=== PATIENT | male | born 1955 | race Caucasian/White ===

== ENCOUNTER 2018-05-25 10:45 | Emergency (ER) | payer OTHER ==
--- NOTE | 2018-05-25 10:55 | EDPHY ---
HPI/HX/ROS/PE/MDM Narrative: CHIEF COMPLAINT: Chest pain, shortness of breath HPI: This patient is a generally healthy 62 year old male. He complains of chest pain and shortness of breath which has gotten progressively worse over the past week. He states "I've had indications for a couple months" and endorses intermittent chest pains and palpitations. Currently he has persistent chest pain and shortness of breath, and he feels as if he is going to faint. The discomfort is in the center of his chest. He states exertion relieves his symptoms. Symptoms are worse at night. No personal or family history of cardiac problems at a young age. Denies fever, cough, recent travel, personal or family history of clotting. REVIEW OF SYSTEMS: A comprehensive 10 system review of systems is otherwise negative aside from elements mentioned in the history of present illness and medical decision making. PMH: Denies SOCIAL HISTORY: Retired. . Lives in [place]. PHYSICAL EXAM: General:Patient is alert, in no acute distress. ENT:Eyes are normal to inspection. ENT inspection normal. Neck: Normal inspection. Full range of motion. Respiratory:No respiratory distress. Breath sounds normal bilaterally. Cardiovascular: Regular rate and rhythm. Strong peripheral pulses. Normal cap refill. Abdomen:The abdomen is nontender to palpation. There are no peritoneal signs. There are normal bowel sounds. Back: Normal to inspection. No tenderness to palpation. Skin: Normal color. No rash. Warm and dry. Extremities: Normal appearance. Full range of motion. Neuro: Oriented x3. Normal motor function. Normal sensory function. ED Course: 62 year old male presents with one week history of worsening chest pain with associated shortness of breath. Plan for EKG, chest x-ray, labs including CBC, chemistries, POC troponin. EKG was ordered and interpreted by myself. Please see [employer] system for official reading. Chest x-ray negative for acute processes. Reviewed laboratory studies. These are largely unremarkable. POC troponin and D- dimer are negative. Reassessed patient. Discussed imaging and laboratory studies. I do not see any indication of ACS or other acute cardiopulmonary processes at this time. We discussed admission vs. outpatient cardiology workup. The patient prefers outpatient workup. He understands he may return for further cardiac testing at any time. Plan to discharge home in good condition. Follow up and strict return precautions discussed. The patient is comfortable with this plan. MDM: On re-evaluation at 1:50 p.m., the patient feels much better. I had extensive discussion with him regarding our extensive workup and offered him admission to the hospital versus outpatient cardiology evaluation. The patient has chosen the latter. He understands that we are unable to fully rule out heart disease as a cause of his chest pain here in the emergency department. I see no evidence of PE, pneumonia, thoracic aortic dissection, pneumothorax or acute coronary syndrome. The patient understands that he needs to return to the emergency department should his symptoms worsen or new symptoms develop. - Data Points Imaging Results: Imaging Impressions Chest X-Ray 05/25/18 10:50 Impression: Clear lungs. No acute process. Imaging: I viewed and interpreted images myself Laboratory Results: Laboratory Results 05/25/18 11:50 05/25/18 11:50 05/25/18 05/25/18 05/25/18 11:52 11:50 11:50 WBC RBC Hgb Hct MCV MCH MCHC RDW Plt Count MPV Neut % (Auto) Lymph % (Auto) Pitt % (Auto) Eos % (Auto) Baso % (Auto) Nucleat RBC Rel Count Absolute Neuts (auto) Absolute Lymphs (auto) Absolute Monos (auto) Absolute Eos (auto) Absolute Basos (auto) Absolute Nucleated RBC Immature Gran % Immature Gran # D-Dimer 0.28 ug/mLFEU ug/mLFEU (0.00-0.50) Sodium 141 mEq/L mEq/L (135-145) Potassium 4.3 mEq/L mEq/L (3.5-5.2) Chloride 106 mEq/L mEq/L (97-110) Carbon Dioxide 25 mEq/l mEq/l (22-31) Anion Gap 10 mEq/L mEq/L (6-14) BUN 13 mg/dL mg/dL (7-23) Creatinine 0.8 mg/dL mg/dL (0.7-1.3) Estimated GFR > 60 Glucose 95 mg/dL mg/dL (70-100) Calcium 9.6 mg/dL mg/dL (8.5-10.4) POC Troponin I 0.00 ng/mL ng/mL (0.00-0.08) 05/25/18 11:50 WBC 4.96 10^3/uL 10^3/uL (3.80-9.50) RBC 5.07 10^6/uL 10^6/uL (4.40-6.38) Hgb 15.9 g/dL g/dL (13.7-17.5) Hct 45.1 % % (40.0-51.0) MCV 89.0 fL fL (81.5-99.8) MCH 31.4 pg pg (27.9-34.1) MCHC 35.3 g/dL g/dL (32.4-36.7) RDW 12.2 % % (11.5-15.2) Plt Count 162 10^3/uL 10^3/uL (150-400) MPV 9.1 fL fL (8.7-11.7) Neut % (Auto) 50.0 % % (39.3-74.2) Lymph % (Auto) 34.9 % % (15.0-45.0) Pitt % (Auto) 8.1 % % (4.5-13.0) Eos % (Auto) 5.6 % % (0.6-7.6) Baso % (Auto) 1.0 % % (0.3-1.7) Nucleat RBC Rel Count 0.0 % % (0.0-0.2) Absolute Neuts (auto) 2.48 10^3/uL 10^3/uL (1.70-6.50) Absolute Lymphs (auto) 1.73 10^3/uL 10^3/uL (1.00-3.00) Absolute Monos (auto) 0.40 10^3/uL 10^3/uL (0.30-0.80) Absolute Eos (auto) 0.28 10^3/uL 10^3/uL (0.03-0.40) Absolute Basos (auto) 0.05 10^3/uL 10^3/uL (0.02-0.10) Absolute Nucleated RBC 0.00 10^3/uL 10^3/uL (0-0.01) Immature Gran % 0.4 % % (0.0-1.1) Immature Gran # 0.02 10^3/uL 10^3/uL (0.00-0.10) D-Dimer Sodium Potassium Chloride Carbon Dioxide Anion Gap BUN Creatinine Estimated GFR Glucose Calcium POC Troponin I Point of Care Test Results: Chemistry 05/25/18 11:52 POC Troponin I 0.00 ng/mL ng/mL (0.00-0.08) General Time Seen by Provider: 05/25/18 10:49 Initial Vital Signs: Initial Vital Signs Temperature (C) 36.4 C 05/25/18 10:49 Heart Rate 65 05/25/18 10:49 Respiratory Rate 16 05/25/18 10:49 Blood Pressure 157/83 H 05/25/18 10:49 O2 Sat (%) 99 05/25/18 10:49 O2 Delivery Mode Room Air Allergies/Adverse Reactions: No Known Allergies Allergy (Unverified 05/25/18 10:48) Home Medications: Medication Instructions Recorded NK [No Known Home Meds] 05/25/18 Departure - Departure Disposition: Home, Routine, Self-Care Clinical Impression: Chest pain Condition: Good Instructions: Chest Pain (ED) Additional Instructions: Follow-up with your primary doctor within 72 hours. Return to the Emergency Department for fever, chest pain, shortness of breath, increasing pain or other worsening of condition. Follow up with a core inserter for further testing, as soon as possible, within one week. We would be happy to reevaluate you and observe you in the hospital at any time. Referrals: NONE *PRIMARY CARE P,. [Primary Care Provider] - As per Instructions Jean-Pierre Rivera MD [Medical Doctor] - As per Instructions Report Scribed for: Rakesh Harrell Report Scribed by: Mary Webster Date of Report: 05/25/18 Time of Report: 10:55 Physician Review and Approval Statement: Portions of this note were transcribed by an ED scribe. I personally performed the history, physical exam, and medical decision making; and confirm the accuracy of the information in the transcribed note.
[2018-05-25 11:58] LABS: PLATELET COUNT 162 10^3/uL (150-400)
[2018-05-25 13:58] VITALS: BP 142/90
== END 2018-05-25 14:09 | disposition home or self-care (01) ==
DX: R07.9 Chest pain, unspecified (principal); R06.02 Shortness of breath
CPT/HCPCS: 84484-ER